=== PATIENT | female | born 1955 | race Hispanic/Latino ===

== ENCOUNTER → 2018-11-07 | Outpatient (CLI) | payer OTHER | END | disposition home or self-care (01) | LOC: RAH 08:00 | PROVIDERS: ATTEND Physician Assistant Medical | DX: Z12.31 Encounter for screening mammogram for malignant neoplasm of breast (principal) | CPT/HCPCS: 77067 ==

== ENCOUNTER 2024-12-19 22:58 | Emergency (ER) | payer MEDICARE ==
[~2024-12-19] VITALS: Ht 147.3 cm; Wt 73.5 kg
--- NOTE | 2024-12-19 23:00 | NUR ---
UA CUP PROVIDED
--- NOTE | 2024-12-19 23:21 | ERN ---
ED Note History of Present Illness Stated Complaint: ABD BLOATING Chief Complaint: Abdominal Pain Time Seen by MD: 23:18 Time Seen by Midlevel: 23:25 Dictation: Ms. Bradley is a 69-year-old female with no reported chronic health issues who presented to the emergency department this evening for evaluation of abdominal pain. She reports left-sided abdominal pain and bloating onset this afternoon. She states the pain began after eating a papaya. She also complains of low back pain. She states she is unable to eat. She states she has been taking [place] and mineral oil. She denies having fever, chills, shortness of breath, cough, chest pain, palpitations, nausea vomiting, diarrhea, constipation, dysuria, headache, or dizziness. Allergies: Uncoded Allergies: CHOCOLATE LAXITIVE (Allergy, Unknown, 12/19/24) Past Medical History Past Medical History: No Pertinent History Surgical History: None PSYCH History: no pertinent psych hx Social History: Negative, Lives with family, Other (Ukrainian is her primary language) History: Not Applicable RN Note Reviewed/Agreed w/PFSH: Yes Review of System Dictation REVIEW OF SYSTEMS: CONSTITUTIONAL: Patient denies fevers, chills, sweats and weight changes. EYES: Patient denies any visual symptoms. EARS, NOSE, AND THROAT: No difficulties with hearing. No symptoms of rhinitis or sore throat. CARDIOVASCULAR: Patient denies chest pains, palpitations, orthopnea and paroxysmal nocturnal dyspnea. RESPIRATORY: No dyspnea on exertion, no wheezing or cough. GI: No nausea, vomiting, diarrhea, constipation,hematochezia or melena. Reports left-sided abdominal pain and bloating. States I can not eat anything. : No urinary hesitancy or dribbling. No nocturia or urinary frequency. No abnormal urethral discharge. MUSCULOSKELETAL: No myalgias or arthralgias. NEUROLOGIC: No chronic headaches, no seizures. Patient denies numbness, tingling or weakness. PSYCHIATRIC: Patient denies problems with mood disturbance. No problems with anxiety. ENDOCRINE: No excessive urination or excessive thirst. DERMATOLOGIC: Patient denies any rashes or skin changes. Initial Vital Sign VS Vital Signs Date Time Temp Pulse Resp B/P (MAP) Pulse Ox O2 Delivery O2 Flow Rate FiO2 12/19/24 22:59 98.6 89 16 185/85 96 Room Air 2/6/25 23:42 0 21 Physical Exam Dictation Vital signs: Reviewed. Afebrile Constitutional: Restless/uncomfortable Head/Face: Normocephalic, atraumatic. Eyes: Periorbital areas with no swelling, redness, or edema. Lids and lashes are normal. Conjunctival injection is absent. Sclera anicteric. Pupils equal, round, reactive to light. ENT: Pinnas intact and no signs of trauma or erythema. Ear canals clear and no discharge. TMs no erythema. No nasal discharge or bleeding noted. Oropharynx with no exudate, redness, swelling, masses, exudates, or evidence of obstruction. Uvula midline. Mucous membranes moist. Neck: Trachea midline, no masses palpated, and no cervical lymphadenopathy. No swelling. Supple, full range of motion. Chest/Axilla: No tenderness, no crepitus, no paradoxical movement, no retractions. Cardiovascular: Regular rate, regular rhythm, no murmur, no gallops. Symmetric pulses. No peripheral edema. BP elevated 185/85 Respiratory: Respirations even and unlabored. Lung sounds clear; no wheezes, rales or rhonchi. Room air SpO2 96% Gastrointestinal: Round/slightly distended. Bowel sounds are normal. No mass or organomegaly . Tenderness LUQ, LLQ No rebound. No rigidity. No voluntary or involuntary guarding. No Christianson's sign. : Negative CVA tenderness bilaterally. Neurological: Normal speech, gross motor function intact, gross sensory function intact. No focal weakness/Paresthesia. Musculoskeletal/Extremities: All extremities have full range of motion, no pain or tenderness on palpation. Symmetric pulses. Integumentary: Intact. Skin is normal color, warm and dry. Cap refill less than 3 seconds. Results (Laboratory/Radiology) Laboratory/Radiology Laboratory Tests Test 12/19/24 23:06 12/19/24 23:41 Urine Color LIGHT-YELLOW (YELLOW) Urine Appearance CLEAR (CLEAR) Urine pH 7.0 (5.0-8.0) Urine Specific Manning 1.017 (1.001-1.031) Urine Protein NEGATIVE mg/dL (NEGATIVE) Urine Glucose (UA) NEGATIVE mg/dL (NEGATIVE) Urine Ketones NEGATIVE mg/dL (NEGATIVE) Urine Occult Blood NEGATIVE (NEGATIVE) Urine Nitrate NEGATIVE (NEGATIVE) Urine Bilirubin NEGATIVE mg/dL (NEGATIVE) Urine Urobilinogen 0.2 mg/dL (0.2-1.0) Urine Leukocyte Esterase 500 Satya/uL (NEGATIVE) H Urine RBC 6-10 /HPF (0-1) H Urine WBC 26-50 /HPF (0-1) H Urine Squamous Epithelial Cells RARE /HPF (0-2) Urine Bacteria None /HPF (None Seen) White Blood Count 9.0 K/uL (4.8-10.8) Red Blood Count 4.34 MIL/uL (4.00-5.50) Hemoglobin 13.2 g/dL (12.0-16.0) Hematocrit 39.4 % (36-48) Mean Corpuscular Volume 90.8 fL (79-99) Mean Corpuscular Hemoglobin 30.4 pg (27.0-33.0) Mean Corpuscular Hemoglobin Concent 33.5 g/dL (32.0-36.0) Red Cell Distribution Width 13.9 % (11.0-15.5) Platelet Count 199 K/uL (130-400) Mean Platelet Volume 11.9 fL (7.5-10.5) H Immature Granulocyte % (Auto) 0.2 % (0-1) Neutrophils (%) (Auto) 87.4 % (40.0-77.0) H Lymphocytes (%) (Auto) 7.9 % (21.0-51.0) L Monocytes (%) (Auto) 4.2 % (3.0-13.0) Eosinophils (%) (Auto) 0.2 % (0.0-8.0) Basophils (%) (Auto) 0.1 % (0.0-5.0) Neutrophils # (Auto) 7.8 K/uL (1.8-7.7) H Lymphocytes # (Auto) 0.7 K/uL (1.0-4.8) L Monocytes # (Auto) 0.4 K/uL (0.1-1.0) Eosinophils # (Auto) 0.02 K/uL (0.00-0.70) Basophils # (Auto) 0.01 K/uL (0.00-0.20) Absolute Immature Granulocyte (auto 0.02 K/uL (0-1) Nucleated Red Blood Cells 0.0 % (0.0-0.19) Sodium Level 138 mmol/L (136-145) Potassium Level 3.7 mmol/L (3.5-5.1) Chloride Level 100 mmol/L (101-111) L Carbon Dioxide Level 31 mmol/L (21-32) Blood Urea Nitrogen 15 mg/dL (7-18) Creatinine 0.8 mg/dL (0.5-1.0) Glomerular Filtration Rate Calc 80 mL/min (>90) Random Glucose 132 mg/dL (70-105) H Total Calcium 8.8 mg/dL (8.5-10.1) Lipase 48 U/L (16-77) Labs Reviewed?: Yes ED Course ED Course Orders Procedure Category Date Status Time Urinalysis Profile LAB 12/19/24 Complete 23:19 Cbc With Differential LAB 12/19/24 In Process 23:19 Basic Metabolic Panel LAB 12/19/24 Complete 23:19 Lipase LAB 12/19/24 Complete 23:19 Dicyclomine Hcl PHA 12/19/24 Complete (Bentyl 20mg Tab) 23:30 Ct Abdomen/Pelvis W/O CT 12/19/24 Resulted Contrast 23:33 Culture Urine SAEED 12/19/24 In Process 23:36 Current Medications Medications (Trade) Dose Ordered Sig/Darek Route PRN Reason Start Time Stop Time Status Last Admin Dose Admin Dicyclomine HCl (Bentyl 20mg Tab) 20 mg ONCE ONCE PO 12/19/24 23:30 12/19/24 23:31 DC 12/19/24 23:50 Vital Signs Date Time Temp Pulse Resp B/P (MAP) Pulse Ox O2 Delivery O2 Flow Rate FiO2 12/19/24 23:42 98.4 84 18 138/85 96 Room Air* 0 21 12/19/24 22:59 98.6 89 16 185/85 96 Room Air Laboratory findings as noted below. No elevation of WBC. H/H stable. Lipase not elevated. Glucose 132 and Cl 100. UA + leukocyte esterase and UWBC 26-50. CT scan of the abdomen and pelvis noted mild small bowel dilatation/gastric distention. No hydronephrosis, no stone, no evidence of acute appendicitis no edema mesenteric or retroperitoneal lymph nodes. CT scan did note constipation. While in the emergency department she received doses Bentyl and IM Rocephin findings were discussed with patient and all questions were answered. Medical Decision Making MDM MDM: Differential diagnosis: Bowel obstruction, constipation, UTI, diverticulitis Rationale: Tests considered and ordered secondary to shared decision making include: Lab, CT scan, UA Previous outside records reviewed: Old ER visits. Risk of complication and/or morbidity or mortality of patient management: None Medications-Per medication reconciliation Need for hospitalization: Patient does not meet criteria for hospitalization. Need for emergency major/minor surgery: No There are no social concerns with this patient. Prescription drug management: Ondansetron, Levsin, cephalexin Prescriptions will include symptomatic care Patient's prior external medical records from other ER visits were reviewed by me as indicated. Prior testing and results from previous visits were reviewed. Prior tests were taken into account with medical decision making and resource utilization, independent historian/historians were used to obtain complete medical history. I independently interpreted the test that were performed, results were reviewed by me and considered findings on radiology if ordered. Medical management and examination interpretation discussions were had by me with other qualified healthcare professionals as indicated for the patient's care. DX & DISP Disposition: Discharge Departure Impression: Primary Impression: UTI (urinary tract infection) Additional Impressions: Constipation, Gastric distention Condition: Stable Scripts Hyoscyamine Sulfate (Levsin-Sl) 0.125 Mg Tab.subl 0.125 MG SL q 8 hours PRN for abdominal pain/cramping, #12 TAB.SL 0 Refills Prov: LUZ DÍAZ [employer] 12/20/24 Cephalexin (Cephalexin) 500 Mg Tablet 500 MG PO BID for 10 Days, #20 TAB 0 Refills Prov: LUZ DÍAZ [employer] 12/20/24 Ondansetron (Ondansetron Odt) 4 Mg Tab.rapdis 4 MG PO Q6HPRN PRN for nausea, #15 TAB 0 Refills Prov: LUZ DÍAZ [employer] 12/20/24 Additional Instructions: Drink plenty of fluids. Avoid foods known to produce gas such as I beans/lentils, call if lower, broccoli, CABG, artificial sweeteners carbonated drinks greasy foods. Take cephalexin 500 mg twice daily for 10 days for urinary tract infection. May take Levsin sublingual one tablet under your tongue every 8 hours as needed for abdominal pain/cramping. May take ondansetron ODT every 6 hours as needed for nausea. You will need to follow up with your primary care physician in the next 2-3 days. Return to the emergency department for any worsening of symptoms or concerns. Referrals: MELLISSA MONTANA (PCP) Time of Disposition: 00:58 LUZ DÍAZ NP Dec 19, 2024 23:21
[2024-12-19 23:33] LABS: APPEARANCE,URINE CLEAR (CLEAR); BILIRUBIN,URINE NEGATIVE (NEGATIVE); COLOR,URINE LIGHT-YELLOW (YELLOW); GLUCOSE, URINE (UA) NEGATIVE (NEGATIVE); KETONES,URINE NEGATIVE (NEGATIVE); LEUKOCYTE ESTERASE ,URINE 500 Leu/uL (NEGATIVE); NITRATE,URINE NEGATIVE (NEGATIVE); OCCULT BLOOD,URINE NEGATIVE (NEGATIVE); PROTEIN,URINE NEGATIVE (NEGATIVE); UROBILINOGEN,URINE 0.2 mg/dL (0.2-1.0)
[2024-12-19 23:35] LABS: ADD UA MICROSCOPIC YES
[2024-12-19 23:38] LABS: MUCUS,URINE RARE LPF (None Seen); SQUAMOUS EPITHELIAL CELL,UR RARE /HPF (0-2); WBC,URINE 26-50 /HPF (0-1)
--- NOTE | 2024-12-19 23:40 | NUR ---
PT CARE ASSUMED AT THIS TIME
[2024-12-19 23:48] LABS: BASOPHILS # (AUTO) 0.01 K/uL (0.00-0.20); BASOPHILS % (AUTO) 0.1 % (0.0-5.0); EOSINOPHILS # (AUTO) 0.02 K/uL (0.00-0.70); EOSINOPHILS % (AUTO) 0.2 % (0.0-8.0); HEMATOCRIT 39.4 % (36-48); IMMATURE GRANULOCYTE ABSOLUTE 0.02 K/uL (0-1); LYMPHOCYTES # (AUTO) 0.7 K/uL (1.0-4.8); LYMPHOCYTES % (AUTO) 7.9 % (21.0-51.0); MEAN CORPUSCULAR HEMOGLOBIN 30.4 pg (27.0-33.0); MEAN CORPUSCULAR HGB CONC 33.5 g/dL (32.0-36.0); MEAN CORPUSCULAR VOLUME 90.8 fL (79-99); MONOCYTES # (AUTO) 0.4 K/uL (0.1-1.0); MONOCYTES % (AUTO) 4.2 % (3.0-13.0); NEUTROPHILS # (AUTO) 7.8 K/uL (1.8-7.7); NEUTROPHILS % (AUTO) 87.4 % (40.0-77.0); PLATELET COUNT (AUTO) 199 K/uL (130-400); RED BLOOD CELL COUNT(AUTO) 4.34 MIL/uL (4.00-5.50); RED CELL DISTRIBUTION WIDTH 13.9 % (11.0-15.5)
[2024-12-19] MEDS: DICYCLOMINE HCL 20 MG TAB PO ONE (23:50)
[2024-12-19 23:59] LABS: CREATININE 0.8 mg/dL (0.5-1.0); POTASSIUM 3.7 mmol/L (3.5-5.1)
--- NOTE | 2024-12-20 00:23 | HMCIMG ---
CT ABDOMEN/PELVIS W/O CONTRAST HISTORY: No additional history given. COMPARISON: None TECHNIQUE: Multiple sequential axial images of the abdomen and pelvis were obtained from the dome of the diaphragm through symphysis pubis. Patient was not given contrast through intravenous route. Oral contrast was not given. FINDINGS: No pleural effusion is seen bilaterally. There is no evidence of parenchymal disease or pulmonary nodule of the visualized lower lungs. Degenerative changes of the thoracolumbar spine are present. The heart is not enlarged. There is left hepatic cyst measuring 2.3 cm. Gastric distention is seen. Small bowel dilatation is seen. The liver, spleen, adrenal glands and pancreas are unremarkable. There is no evidence of hydronephrosis bilaterally. No evidence of renal stone is seen. Fecal material is seen in the colon. There are normal size retroperitoneal and mesenteric lymph nodes. No ascites is seen. No CT evidence of acute appendicitis is seen. Pelvic sidewalls are symmetric bilaterally. Bladder is well distended without wall thickening. IMPRESSION: 1. Mild small bowel dilatation. CT was performed with one or more following dose reduction techniques: automated exposure control, adjustment of the mA and kv according to patient's size, or use of a iterative reconstruction technique.
[2024-12-20] MEDS ORDERED: ONDA-243 PO (00:57)
[2024-12-20] MEDS ORDERED: CEPH500T PO (00:57)
[2024-12-20] MEDS ORDERED: HYOS0.124 SL (00:57)
[2024-12-20 01:05] VITALS: BP 130/82; PULSE 80; RESP 18; TEMP 98.4; O2SAT 97
[2024-12-20 01:13] LABS: PLATELET MORPHOLOGY PLT CLUMPS PRESENT; WBC MORPHOLOGY CONSISTENT W/DIFF
[2024-12-20] MEDS: ketOROlac 15MG/ML VIAL (15MG/ML) IM ONE (01:18)
== END 2024-12-20 01:25 | disposition home or self-care (01) ==
LOC: EDH 22:58
DX: K59.00 Constipation, unspecified (principal); N39.0 Urinary tract infection, site not specified; R14.0 Abdominal distension (gaseous)
CPT/HCPCS: 99285; 74176; 80048; 83690; 85025; 87086; 81001; 36415; 96372; J1885